=== PATIENT | female | born 1995 | race Two or more races ===

== ENCOUNTER 2018-03-15 02:31 | Emergency (ER) | payer BC ==
[~2018-03-15] VITALS: Ht 162.6 cm; Wt 104.1 kg
[2018-03-15] MEDS ORDERED: PROPOFOL 10 MG/ML, 20ML IVPush ONE (03:00)
[2018-03-15] MEDS ORDERED: DIPHTHERIA-TETANUS ADULT 0.5ML IM-VACC ONE (03:00)
[2018-03-15] MEDS ORDERED: LIDOCAINE 2%, 20ML INFIL ONE (03:00)
[2018-03-15] MEDS ORDERED: SODIUM CHLORIDE FLUSH 10ML SYR IVF ONE (03:00)
[2018-03-15] MEDS ORDERED: PROPOFOL 10 MG/ML, 20ML ONE ×2 (03:05→03:10)
[2018-03-15] MEDS ORDERED: LIDOCAINE-MPF 2%, 2ML ONE (03:10)
[2018-03-15] MEDS ORDERED: OXYcodone/APAP 5/325MG TABLET PO ONE (04:00)
[2018-03-15] MEDS ORDERED: OXYcodone/APAP 5/325MG TABLET ONE (04:01)
[2018-03-15 04:21] VITALS: BP 123/81
== END 2018-03-15 04:42 | disposition home or self-care (01) ==
LOC: ED 04:38
DX: S52.501A Unspecified fracture of the lower end of right radius, initial encounter for closed fracture (principal); S52.611A Displaced fracture of right ulna styloid process, initial encounter for closed fracture; G89.11 Acute pain due to trauma; S01.511A Laceration without foreign body of lip, initial encounter; S00.31XA Abrasion of nose, initial encounter; V19.49XA Pedal cycle driver injured in collision with other motor vehicles in traffic accident, initial encounter; Y93.55 Activity, bike riding; Y92.410 Unspecified street and highway as the place of occurrence of the external cause; Y99.8 Other external cause status
CPT/HCPCS: 12011; 25605; 90471; 90714; 99152

== ENCOUNTER → 2018-03-17 | Outpatient (CLI) | payer BC | END | disposition home or self-care (01) | LOC: RAD 15:37 | PROVIDERS: ATTEND Orthopaedic Surgery | DX: S52.571A Other intraarticular fracture of lower end of right radius, initial encounter for closed fracture (principal); X58.XXXA Exposure to other specified factors, initial encounter; Y93.89 Activity, other specified; Y92.89 Other specified places as the place of occurrence of the external cause; Y99.8 Other external cause status ==